=== PATIENT | female | born 1940 | race Native Hawaiian/Other Pacific Islander ===

== ENCOUNTER 2016-06-17 08:27 | Outpatient (CLI) | payer OTHER | END 2016-06-17 19:02 | disposition home or self-care (01) | LOC: MAMMO 08:27 | DX: Z12.31 Encounter for screening mammogram for malignant neoplasm of breast (principal) | CPT/HCPCS: G0202-TC ==

== ENCOUNTER 2017-06-21 09:35 | Outpatient (CLI) | payer OTHER | END 2017-06-21 21:56 | disposition home or self-care (01) | LOC: MAMMO 09:35 | DX: Z12.31 Encounter for screening mammogram for malignant neoplasm of breast (principal) ==

== ENCOUNTER 2018-06-23 08:51 | Outpatient (CLI) | payer OTHER | END 2018-06-23 19:47 | disposition home or self-care (01) | LOC: MAMMO 08:51 | DX: Z12.31 Encounter for screening mammogram for malignant neoplasm of breast (principal) ==

== ENCOUNTER 2020-10-06 12:54 | Outpatient (CLI) | payer OTHER | END 2020-10-06 21:05 | disposition home or self-care (01) | LOC: MAMMO 12:54 | PROVIDERS: ATTEND Specialist | DX: Z12.31 Encounter for screening mammogram for malignant neoplasm of breast (principal) ==

== ENCOUNTER 2021-10-26 10:01 | Outpatient (CLI) | payer OTHER | END 2021-10-26 19:32 | disposition home or self-care (01) | LOC: MAMMO 10:01 | PROVIDERS: ATTEND Specialist | DX: Z12.31 Encounter for screening mammogram for malignant neoplasm of breast (principal) ==

== ENCOUNTER 2022-10-28 09:25 | Outpatient (CLI) | payer OTHER | END 2022-10-28 19:50 | disposition home or self-care (01) | LOC: MAMMO 09:25 | PROVIDERS: ATTEND Specialist | DX: Z12.31 Encounter for screening mammogram for malignant neoplasm of breast (principal) ==